=== PATIENT | male | born 1945 | race Caucasian/White ===

== ENCOUNTER 2021-09-15 08:22 | Outpatient (CLI) | payer MEDICARE, OTHER | END 2021-09-15 08:23 | disposition home or self-care (01) | LOC: RAD 08:22 | PROVIDERS: ATTEND Internal Medicine Critical Care Medicine | DX: R06.00 Dyspnea, unspecified (principal); I51.7 Cardiomegaly | CPT/HCPCS: 71046 ==

== ENCOUNTER 2023-02-19 09:12 | Outpatient (CLI) | payer MEDICARE, OTHER | END 2023-02-19 09:13 | disposition home or self-care (01) | LOC: RAD 09:12 | PROVIDERS: ATTEND Internal Medicine Critical Care Medicine | DX: R06.00 Dyspnea, unspecified (principal); I51.7 Cardiomegaly; R09.89 Other specified symptoms and signs involving the circulatory and respiratory systems | CPT/HCPCS: 71046 ==

== ENCOUNTER 2024-10-09 11:09 | Outpatient (CLI) | payer MEDICARE | END 2024-10-09 11:10 | disposition home or self-care (01) | PROVIDERS: ATTEND Family Medicine | DX: R26.9 Unspecified abnormalities of gait and mobility (principal); Z99.81 Dependence on supplemental oxygen | CPT/HCPCS: 36415; 80053; 80061; 84443 ==